=== PATIENT | female | born 1995 | race Caucasian/White ===

== ENCOUNTER 2018-03-30 15:57 | Emergency (ER) | payer OTHER ==
[~2018-03-30] VITALS: Ht 154.9 cm; Wt 103.4 kg
[2018-03-30 16:00] VITALS: Ht 154.9 cm; Wt 103.4 kg
[2018-03-30 17:07] VITALS: BP 125/73
== END 2018-03-30 17:07 | disposition home or self-care (01) ==
LOC: ED 15:57
DX: O23.41 Unspecified infection of urinary tract in pregnancy, first trimester (principal); R68.83 Chills (without fever); R11.0 Nausea; Z3A.14 14 weeks gestation of pregnancy; Z90.49 Acquired absence of other specified parts of digestive tract

== ENCOUNTER 2018-05-05 21:27 | Inpatient (IN) | payer OTHER ==
[~2018-05-05] VITALS: Ht 154.9 cm; Wt 103.5 kg
[2018-05-05 22:04] VITALS: Ht 154.9 cm; Wt 103.5 kg
[2018-05-05 22:55] LABS: BASOPHIL % 0.8 % (0-2); PLATELET COUNT 194 x10^3mcL (130-400)
[2018-05-05 23:12] LABS: CALCIUM 8.4 mg/dL (8.5-10.1); CARBON DIOXIDE 22.8 mmol/L (21-32); CHLORIDE SERUM 103 mmol/L (98-107); CREATININE SERUM 0.6 mg/dL (0.6-1.0); GFR1 > 60 mL/min; GLUCOSE SERUM 91 mg/dL (74-106); POTASSIUM SERUM 3.2 mmol/L (3.5-5.1); SODIUM SERUM 134 mmol/L (136-145)
[2018-05-05 23:15] LABS: UA SPECIFIC GRAVITY 1.025 (1.005-1.035); microscopic required? YES; urine erythrocyte NEGATIVE (NEGATIVE)
[2018-05-05 23:25] LABS: ALBUMIN 2.5 g/dL (3.4-5.0); ALKALINE PHOSPHATASE 76 U/L (46-116); ALT/SGPT 22 U/L (14-59); AST/SGOT 18 U/L (15-37); BILIRUBIN TOTAL 0.7 mg/dL (0.20-1.00); FREE T4 0.89 ng/dL (0.76-1.46); LIPASE 80 IU/L (73-393); TOTAL PROTEIN, SERUM 6.8 g/dL (6.4-8.2)
[2018-05-06] MEDS ORDERED: BONJESTA ER 201 EACH PO (03:56)
[2018-05-06 05:29] VITALS: BP 111/48
[2018-05-06 09:57] VITALS: BP 101/55
[2018-05-06 13:01] VITALS: BP 127/80
[2018-05-06 17:24] VITALS: BP 130/76
[2018-05-06 20:38] VITALS: BP 111/69
[2018-05-07 04:56] VITALS: BP 121/74
[2018-05-07 06:58] LABS: ALBUMIN 2.3 g/dL (3.4-5.0); ALKALINE PHOSPHATASE 70 U/L (46-116); ALT/SGPT 32 U/L (14-59); AST/SGOT 21 U/L (15-37); BILIRUBIN TOTAL 0.2 mg/dL (0.20-1.00); CALCIUM 8.5 mg/dL (8.5-10.1); CARBON DIOXIDE 21.3 mmol/L (21-32); CHLORIDE SERUM 107 mmol/L (98-107); CREATININE SERUM 0.4 mg/dL (0.6-1.0); GFR1 > 60 mL/min; GLUCOSE SERUM 77 mg/dL (74-106); POTASSIUM SERUM 3.5 mmol/L (3.5-5.1); SODIUM SERUM 140 mmol/L (136-145); TOTAL PROTEIN, SERUM 6.5 g/dL (6.4-8.2)
[2018-05-07 07:36] LABS: RED CELL DISTRIBUTION WIDTH 13.6 % (11.5-14.5)
[2018-05-07 07:38] LABS: PLATELET COUNT 271 x10^3mcL (130-400)
== END 2018-05-07 09:09 | disposition left against medical advice (07) | DRG 781 ==
LOC: ED 21:27 → DU 05-06 04:36
PROVIDERS: Emergency Medicine; Internal Medicine Nephrology
DX: O99.612 Diseases of the digestive system complicating pregnancy, second trimester (principal); Z68.42 Body mass index [BMI] 45.0-49.9, adult; A08.4 Viral intestinal infection, unspecified; E66.9 Obesity, unspecified; E87.6 Hypokalemia; Z3A.19 19 weeks gestation of pregnancy
CPT/HCPCS: 84439; J0696; J2765; J3010; J7030; Q0092

== ENCOUNTER 2019-04-14 19:13 | Emergency (ER) | payer OTHER ==
[~2019-04-14] VITALS: Ht 152.4 cm; Wt 117.9 kg
[~2019-04-14 19:13] MED LIST: BONJESTA ER 201 EACH PO
[2019-04-14 19:17] VITALS: Ht 152.4 cm; Wt 117.9 kg
[2019-04-14 20:24] VITALS: BP 160/99
== END 2019-04-14 20:21 | disposition other institution (70) ==
LOC: ED 19:13
DX: Z02.89 Encounter for other administrative examinations (principal)